=== PATIENT | female | born 1950 | race Hispanic/Latino ===

== ENCOUNTER → 2022-05-21 | Outpatient (CLI) | payer OTHER | END | disposition home or self-care (01) | LOC: RAH 11:01 | PROVIDERS: ATTEND Internal Medicine | DX: Z12.31 Encounter for screening mammogram for malignant neoplasm of breast (principal) | CPT/HCPCS: 77067 ==

== ENCOUNTER 2023-05-27 14:59 | Emergency (ER) | payer OTHER, MEDICARE ==
[~2023-05-27] VITALS: Ht 160 cm; Wt 88.0 kg
[2023-05-27] MEDS ORDERED: KETOROLAC 30MG VIAL (30MG/ML) IM ONE (17:30)
[2023-05-27 17:54] LABS: SARS-CoV-2, RNA, NAAT NEGATIVE SARS CoV-2 (NEGATIVE)
[2023-05-27 17:59] LABS: INFLUENZA TYPE A Negative For Type A (NEGATIVE); INFLUENZA TYPE B Negative For Type B (NEGATIVE)
[2023-05-27] MEDS ORDERED: IBUP-2070 PO (19:13)
[2023-05-27 19:20] VITALS: BP 142/64; PULSE 76; RESP 18; O2SAT 98
== END 2023-05-27 19:21 | disposition home or self-care (01) ==
LOC: EDH 14:59
DX: H57.11 Ocular pain, right eye (principal); E11.9 Type 2 diabetes mellitus without complications; E78.00 Pure hypercholesterolemia, unspecified; I10 Essential (primary) hypertension; Z20.822 Contact with and (suspected) exposure to COVID-19
CPT/HCPCS: 99283; 87635; 87804 ×2; 96372; C9803; J1885

== ENCOUNTER → 2024-07-31 | Outpatient (CLI) | payer OTHER, MEDICARE ==
[~2024-07-31] MED LIST: IBUP-2070 PO
[2024-07-31 12:22] LABS: BASOPHILS # (AUTO) 0.04 K/uL (0.00-0.20); BASOPHILS % (AUTO) 0.5 % (0.0-5.0); EOSINOPHILS # (AUTO) 0.13 K/uL (0.00-0.70); EOSINOPHILS % (AUTO) 1.6 % (0.0-8.0); HEMATOCRIT 37.5 % (36-48); IMMATURE GRANULOCYTE ABSOLUTE 0.03 K/uL (0-1); LYMPHOCYTES # (AUTO) 3.2 K/uL (1.0-4.8); MEAN CORPUSCULAR HEMOGLOBIN 29.9 pg (27.0-33.0); MEAN CORPUSCULAR HGB CONC 32.3 g/dL (32.0-36.0); MEAN CORPUSCULAR VOLUME 92.6 fL (79-99); MONOCYTES # (AUTO) 0.5 K/uL (0.1-1.0); NEUTROPHILS # (AUTO) 4.3 K/uL (1.8-7.7); NEUTROPHILS % (AUTO) 52.5 % (40.0-77.0); PLATELET COUNT (AUTO) 233 K/uL (130-400); RED BLOOD CELL COUNT(AUTO) 4.05 MIL/uL (4.00-5.50); WHITE BLOOD COUNT (AUTO) 8.2 K/uL (4.8-10.8)
[2024-07-31 12:54] LABS: ALBUMIN 3.6 g/dL (3.5-5.0); BILIRUBIN,TOTAL 0.3 mg/dL (0.2-1.0); CREATININE 1.1 mg/dL (0.5-1.0); POTASSIUM 5.4 mmol/L (3.5-5.1)
== END | disposition home or self-care (01) ==
LOC: LAB 10:33
PROVIDERS: ATTEND Internal Medicine Cardiovascular Disease
DX: I12.9 Hypertensive chronic kidney disease with stage 1 through stage 4 chronic kidney disease, or unspecified chronic kidney disease (principal); N18.9 Chronic kidney disease, unspecified; E78.5 Hyperlipidemia, unspecified
CPT/HCPCS: 36415; 80053; 80061; 85025

== ENCOUNTER → 2024-09-15 | Outpatient (CLI) | payer OTHER, MEDICARE ==
[~2024-09-15] VITALS: Ht 154.9 cm; Wt 86.6 kg
[~2024-09-15] MED LIST changes: +ATOR40TA71 PO; +EMPA25TA PO; +INSU3INS3 SQ; +LISI10TA24 PO; +MONT-39 PO; +SEMA2PEN SQ; +SERT-439 PO
[2024-09-15 11:12] VITALS: BP 164/78; PULSE 65; RESP 18; TEMP 97.2
[2024-09-15 11:14] LABS: BASOPHILS # (AUTO) 0.04 K/uL (0.00-0.20); BASOPHILS % (AUTO) 0.4 % (0.0-5.0); EOSINOPHILS # (AUTO) 0.09 K/uL (0.00-0.70); HEMATOCRIT 37.1 % (36-48); IMMATURE GRANULOCYTE ABSOLUTE 0.03 K/uL (0-1); LYMPHOCYTES # (AUTO) 2.6 K/uL (1.0-4.8); LYMPHOCYTES % (AUTO) 29.2 % (21.0-51.0); MEAN CORPUSCULAR HGB CONC 31.8 g/dL (32.0-36.0); MEAN CORPUSCULAR VOLUME 94.4 fL (79-99); MONOCYTES # (AUTO) 0.5 K/uL (0.1-1.0); MONOCYTES % (AUTO) 5.1 % (3.0-13.0); NEUTROPHILS # (AUTO) 5.8 K/uL (1.8-7.7); PLATELET COUNT (AUTO) 238 K/uL (130-400); RED BLOOD CELL COUNT(AUTO) 3.93 MIL/uL (4.00-5.50); RED CELL DISTRIBUTION WIDTH 12.8 % (11.0-15.5)
[2024-09-15 11:24] LABS: ALBUMIN 3.6 g/dL (3.5-5.0); CARBON DIOXIDE 31 mmol/L (21-32); CHLORIDE 107 mmol/L (101-111); CREATININE 0.9 mg/dL (0.5-1.0); GLOMERULAR FILTR. RATE CALC 68 mL/min (>90); GLUCOSE,RANDOM 128 mg/dL (70-105); POTASSIUM 4.7 mmol/L (3.5-5.1); SODIUM SERUM 139 mmol/L (136-145); UREA NITROGEN, BLOOD 26 mg/dL (7-18)
[2024-09-15 11:25] LABS: PROTHROMBIN TIME 10.6 SEC (9.6-11.6)
[2024-09-15 11:26] LABS: PARTIAL THROMBOPLASTIN TIME 27.6 SEC (26.3-35.5)
--- NOTE | 2024-09-15 11:30 | NUR ---
RE: IS INITIAL INCENTIVE SPIROMETER TEACHING DONE BY RT ALEJO DURING PREOP.
== END | disposition home or self-care (01) ==
LOC: DAH 10:15 → EDSTATUS 09-20 13:00
PROVIDERS: ATTEND Student in an Organized Health Care Education/Training Program
DX: Z01.812 Encounter for preprocedural laboratory examination (principal); M25.561 Pain in right knee; M17.11 Unilateral primary osteoarthritis, right knee; E11.22 Type 2 diabetes mellitus with diabetic chronic kidney disease; E11.51 Type 2 diabetes mellitus with diabetic peripheral angiopathy without gangrene; E11.36 Type 2 diabetes mellitus with diabetic cataract; N18.32 Chronic kidney disease, stage 3b; H26.9 Unspecified cataract
CPT/HCPCS: 36415; 80048; 82040; 84134; 85025; 85610; 85730; 86140; 87641

== ENCOUNTER 2024-12-13 05:34 | Observation (INO) | payer OTHER, MEDICAID ==
[2024-12-11 12:13] LABS: IMMATURE GRANULOCYTE ABSOLUTE 0.02 K/uL (0-1); NUCLEATED RED BLOOD CELLS 0.0 % (0.0-0.19); PLATELET COUNT (AUTO) 237 K/uL (130-400); RED BLOOD CELL COUNT(AUTO) 3.88 MIL/uL (4.00-5.50); RED CELL DISTRIBUTION WIDTH 12.8 % (11.0-15.5); WHITE BLOOD COUNT (AUTO) 9.0 K/uL (4.8-10.8)
[2024-12-11 12:15] LABS: APPEARANCE,URINE CLOUDY (CLEAR); GLUCOSE, URINE (UA) NEGATIVE (NEGATIVE); LEUKOCYTE ESTERASE ,URINE 500 Leu/uL (NEGATIVE); NITRATE,URINE 2+ (NEGATIVE); OCCULT BLOOD,URINE +- (TRACE) (NEGATIVE)
[2024-12-11 12:23] LABS: ADD UA MICROSCOPIC YES
[2024-12-11 12:26] LABS: INR 0.97 (0.85-1.15)
[2024-12-11 12:27] LABS: CREATININE 0.9 mg/dL (0.5-1.0); GLOMERULAR FILTR. RATE CALC 68 mL/min (>90); GLUCOSE,RANDOM 135 mg/dL (70-105); SODIUM SERUM 143 mmol/L (136-145); UREA NITROGEN, BLOOD 32 mg/dL (7-18)
[2024-12-11 12:29] LABS: SQUAMOUS EPITHELIAL CELL,UR RARE /HPF (0-2); WBC CLUMP FEW /HPF (0-1)
--- NOTE | 2024-12-11 13:00 | NUR ---
RE: IS INITIAL IS INITIAL DONE BY RT CYNDI DURING PREOP
[2024-12-11 13:57] VITALS: BP 168/72; PULSE 61; RESP 18; TEMP 97.5
--- NOTE | 2024-12-12 13:27 | NUR ---
RE: LABS REPORTED UA/URINE CX RESULTS TO DR FATIMA, NO NEW ORDERS RECEIVED. (PENDING SENSITIVITIES/SUSCEPTIBILITIES RESULTS)
[~2024-12-13] VITALS: Ht 152.4 cm; Wt 89.5 kg
[2024-12-13] VITALS (47 sets, daily range): BP systolic 99–156; BP diastolic 51–79; PULSE 55–98; RESP 12–20; TEMP 97.3–98.7; O2SAT 97–98
[~2024-12-13 05:34] MED LIST changes: -IBUP-2070 PO; +LATA2.5D7 OU; +MECL-302 PO
[2024-12-13] MEDS: 0.9%NACL 1000ML 1,000 ML IV ONE (06:12)
[2024-12-13] MEDS: FAMOTIDINE 20MG VIAL IV ONE (06:51)
[2024-12-13] MEDS ORDERED: LIDOCAINE PF 100MG/5ML (2%) SYRINGE 5ML ONE (06:53)
[2024-12-13] MEDS ORDERED: MIDAZOLAM HCL 1 MG/ML 2ML VIAL ONE (06:54)
--- NOTE | 2024-12-13 06:54 | EKG ---
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
[2024-12-13] MEDS: TRANEXAMIC ACID 1000MG/10ML ONE (07:50)
[2024-12-13] MEDS ORDERED: NEOSTIGMINE METHYLSULFATE 1MG/ML IV ONE (08:04)
[2024-12-13] MEDS ORDERED: GLYCOPYRROLATE 0.2 MG/ML 5 ML VIAL ONE (08:04)
[2024-12-13] MEDS ORDERED: HYDROcodone/APAP 5/325 1 TAB TABLET PO PRN (09:30)
[2024-12-13] MEDS ORDERED: CYCLOBENZAPRINE HCL 10 MG TABLET PO PRN (09:30)
[2024-12-13] MEDS ORDERED: CALCIUM CARB 500MG PO PRN (09:30)
[2024-12-13] MEDS ORDERED: PoTASSium chloRIDE 20MEQ ER 20 MEQ ERTAB PO PRN (09:30)
[2024-12-13] MEDS ORDERED: PoTASSium chl 10% ELIXIR 20MEQ 20 MEQ/15 ML UDCUP PO PRN (09:30)
[2024-12-13] MEDS: 0.9%NACL 1000ML 1,000 ML IV SCH (09:30)
[2024-12-13] MEDS ORDERED: FERROUS FUMARATE 324 MG TABLET PO PRN (09:30)
--- NOTE | 2024-12-13 11:24 | HMCIMG ---
EXAM: CR right Knee, 2 View. CLINICAL HISTORY: S/P RT TKA SURGERY COMPARISON: None provided. FINDINGS: Cemented right total knee arthroplasty is in near anatomic alignment with no periprosthetic fracture. Small knee joint effusion. Appropriate postsurgical changes about the right knee. IMPRESSION: 1. Postoperative right total knee arthroplasty in near anatomic alignment with small knee joint effusion. /[place]
--- NOTE | 2024-12-13 13:50 | DS ---
Discharge Summary Hospital Course Summary: The patient was admitted to the hospital postoperatively on 12/13/2024 after undergoing right total knee arthroplasty. They did well with routine postoperative pain control. They worked well with physical therapy. They developed some acute blood loss anemia but remained asymptomatic. The hospital course was otherwise uncomplicated. They were subsequently able to be discharged on postoperative day [] once discharge arrangements were made with home health position therapy. Verification Lead(s): None Procedure(s): Right total knee arthroplasty, 12/13/2024 Assessment/Plan: ASSESSMENT: Status post right total knee arthroplasty Acute blood loss anemia PLAN: See discharge instructions Home Medications: Reported Medications Empagliflozin (Jardiance) 25 Mg Tablet, 25 MG PO DAILY, TAB 12/11/24 Meclizine HCl (Meclizine HCl) 25 Mg Tablet, 25 MG PO DAILY PRN for DIZZINESS, TAB 12/11/24 Latanoprost (Latanoprost) 0.005 % Drops, 1 DROP OU HS, DROP 12/11/24 Insulin Glargine,Hum.rec.anlog (Lantus Solostar) 100 Unit/Ml (3 Ml) Insuln.pen, 25 UNIT SQ DAILY, SYRINGE 09/15/24 Semaglutide (Ozempic) 2 Mg/0.75 Ml (8 Mg/3 Ml) Pen.injctr, 2 MG SQ QWEEK Wednesday09/15/24 Montelukast Sodium (Montelukast Sodium) 10 Mg Tablet, 10 MG PO HS, TAB 09/15/24 Atorvastatin Calcium (Atorvastatin Calcium) 40 Mg Tablet, 40 MG PO HS, TAB 09/15/24 Sertraline HCl (Sertraline HCl) 50 Mg Tablet, 50 MG PO HS, TAB 09/15/24 Lisinopril (Lisinopril) 10 Mg Tablet, 10 MG PO DAILY, TAB 09/15/24 Discontinued Reported Medications Empagliflozin (Jardiance) 25 Mg Tablet, 25 MG PO DAILY, TAB 09/15/24 MARIS FATIMA MD Dec 13, 2024 13:50
--- NOTE | 2024-12-13 13:55 | OP ---
Operative Note: DATE OF PROCEDURE: 12/13/24 PREOPERATIVE DIAGNOSIS: Right knee osteoarthritis. POSTOPERATIVE DIAGNOSIS: Right knee osteoarthritis. PROCEDURE PERFORMED: Right knee total knee arthroplasty. SURGEON: Lina Woodson MD SUPERVISOR LOADING: Selvin Ann and Paulette Payton. ANESTHESIA: General with adductor canal block. ANESTHESIA: LAMAR Dodge. ESTIMATED BLOOD LOSS: 150cc. COMPLICATIONS: None. DRAINS: None. SPECIMENS REMOVED: resected bone. Not sent to pathology. IMPLANTS: [employer] II BCS size 4 Oxinium femur, size 3 tibial base plate, 32 mm patella, 9 mm polyethylene STATEMENT OF MEDICAL NECESSITY: The patient is a 74-year-old female who suffers from right knee osteoarthritis failing conservative management. After discussion of the risks, benefits, and alternatives with the patient, they voluntarily agreed to undergo the aforementioned procedure. DESCRIPTION OF PROCEDURE: Patient was properly identified in the preoperative holding area. Surgical site marking was verified and surgery consent reviewed. The patient was then taken to the operating room and placed in supine position on the OR table. After induction of general anesthesia, preoperative antibiotics were given, all bony prominences were well-padded, and a well padded tourniquet was applied but not inflated at this time. The right lower extremity was then prepped and draped in usual sterile fashion. Surgical time out was done verifying correct surgery, side, site, and location to be performed. We then began the procedure by exsanguinating the limb using an Esmarch and inflating the tourniquet to 350 mmHg. At this point, we made an anterior midline incision using a 10 blade, coming down sharply the level of the fascia. Skin flaps were elevated medially and laterally. We then obtained a clean 10 blade and performed a standard medial parapatellar arthrotomy. We excised the infrapatellar fat pad. We performed our soft tissue releases off of the tibia. We transected the ACL and removed the anterior portion of the medial & lateral meniscus. We then brought the knee into hyperflexion with the patella everted. We used our entry reamer to enter the femoral canal. We then placed our intramedullary cutting guide for our distal femoral cutting block. We then performed our distal femoral osteotomy ensuring appropriate rotation and removed the bony wafer. We then removed these pins and block and then used jig 2 to size the distal femur with the after mentioned size found. We then placed our 5-in-1 cutting block in 4 degrees of external rotation and took our 5 cuts ensuring to protect the patellar tendon and the collateral ligaments. We then removed the cutting block and our bony fragments using a curved osteotome. We then placed our PCL retractor subluxating the tibia anteriorly. Using an extra medullary tibial cutting guide, we hung the block for our proximal tibial cut taking 2 mm off the more diseased portion. Prior to pinning this block in place, we ensured appropriate varus/valgus alignment and posterior slope similar to the [place] slope of the patient's knee. We then performed our proximal tibial osteotomy and removed the bony wafer using Bovie electrocautery to release any remaining soft tissue attachments. We then used our tibial sizing paddle and checked once more for varus & valgus alignment and found this to be appropriate. At this point, we pinned our tibial paddle in place. We then removed the PCL retractor and subluxated the tibia posteriorly while we placed our femoral trial component. We then finished preparing the notch with the reamer and box chisel. The notch portion of the trial femoral component was then placed. A posterior stabilized polyethylene, size 9 trial was placed. The knee was then taken through range of motion and found to have stable full range of motion. We then placed a bump under the ankle and everted the patella to perform our freehand cut of the undersurface the patella. We then sized our patella and reamed to the lug holes for this. We placed our trial patellar component and begin to take the knee through range of motion. The patella had mild lateral tracking and a small lateral release was performed. At this point we began removing our trial components and punched the tibial keel prior to removing our tibial trial component. Final components were opened and cement was mixed on the back table while we injected local cocktail in the posterior capsule. We then thoroughly irrigated out the bone and dried the bony surfaces. We cemented our tibial component in place ensuring to remove excess cement and placed our trial polyethylene. We then cemented our femoral component in place once again taking time to ensure excess cement was removed leg was brought into full extension to help squeeze the excess cement from around the femoral component. We then brought the knee back in a flexion to remove this portion of the cement at this point we placed the ankle in a bump thoroughly irrigated off the patellar component and cemented our patellar component in standard fashion again removing excess cement. While we waited for the cement to cure, we thoroughly irrigated out the wound with normal saline. Once our cement had cured, we took the knee through a range of motion and found full and stable range of motion. We then elected to use the size 9 polyethylene and removed our trial polyethylene. We impacted our final polyethylene component in place in standard fashion and took the knee through a range of motion check once more. This was satisfactory so we began to repair the arthrotomy using #5 Ethibond and #1 Vicryl in interrupted [id number] fashion. Subcutaneous tissue was repaired using 2-0 Vicryl. Running subcuticular 3-0 Monocryl stitch with Dermabond placed over this for the skin. We then applied a foam barrier dressing and a pressure dressing consisting of 4 x 4's fluffs and an Fidencio wrap. The tourniquet was then deflated. Patient was awakened from anesthesia, and they were taken to the recovery room in stable condition. LINA WOODSON MD Dec 13, 2024 13:55
[2024-12-13] MEDS: HYDROcodone/APAP 5/325 1 TAB TABLET PO PRN (15:31)
--- NOTE | 2024-12-13 18:16 | NUR ---
DC PLAN VISITED WITH PATIENT. PATIENT LIVE WITH SPOUSE AND DAUGHTER. PATIENT HAS [facility] WALKER AND CANE. PROVIDER NOT SURE ON THE HOURS. CM ORDER WAS FOR HOME HEALTH AND AND EQUIPMENT. PER DAUGHTER THEY NOW WANT SNF. DAUGHTER CALLED OTHER DAUGHTER FOR WHICH FACILITY. SAID THEY WANT [facility] HAS FAMILY THERE. CM LET DR. FATIMA KNOW GOT OKAY FOR SNF. PACKET MADE AND SENT. Addendum: 12/13/24 at 1823 by PAPITO AGUILERA RN CM Amended: Links added.
[2024-12-13] MEDS: LATANOPROST 2.5 ML DROPS OU SCH (21:00)
[2024-12-14] VITALS: BP 107/55; PULSE 64; RESP 18; TEMP 97.4
[2024-12-14 04:00] VITALS: BP 106/45; PULSE 61; RESP 18; TEMP 98.6
[2024-12-14 04:06] LABS: NUCLEATED RED BLOOD CELLS 0.0 % (0.0-0.19); PLATELET COUNT (AUTO) 192.0 K/uL (130-400); RED BLOOD CELL COUNT(AUTO) 3.15 MIL/uL (4.00-5.50); RED CELL DISTRIBUTION WIDTH 13.1 % (11.0-15.5); WHITE BLOOD COUNT (AUTO) 10.6 K/uL (4.8-10.8)
[2024-12-14 04:28] LABS: CREATININE 1.3 mg/dL (0.5-1.0); GLOMERULAR FILTR. RATE CALC 43.0 mL/min (>90); GLUCOSE,RANDOM 94.0 mg/dL (70-105); SODIUM SERUM 141.0 mmol/L (136-145); UREA NITROGEN, BLOOD 32.0 mg/dL (7-18)
[2024-12-14 07:51] VITALS: BP 113/70; PULSE 69; RESP 20; TEMP 97.8
[2024-12-14 08:02] VITALS: O2SAT 98
[2024-12-14] MEDS: EMPAGLIFLOZIN 25MG TABLET PO SCH (09:21)
[2024-12-14] MEDS: ASPIRIN 325MG EC TAB PO SCH (09:22)
[2024-12-14] MEDS: LISINOPRIL 10 MG TABLET PO SCH (09:23)
[2024-12-14] MEDS: HYDROcodone/APAP 5/325 1 TAB TABLET PO PRN (09:52)
--- NOTE | 2024-12-14 11:50 | NUR ---
Ortho Coordinator: Teaching regarding DVT and pneumonia, pain expectations and pain management. Patient in bed. Family at bedside. Patient Upper Sorbian speaking only. Primary nurse, who is a hospital cork tile floor layer utilized to communicate. Incentive spirometer at bedside, patient return demonstrated proper use and verbalized frequency of use. Patient return demonstration of foot flexion/extension exercises, rationale provided. Pain currently controlled. Reviewed numeric pain scale. Patient instructed to perform self-pain assessment every few hours and report to nurse the numeric pain value and type of pain. Patient and family verbalized understanding. Patient intends to discharge to rehab. Encouraged patient to continue premedicating prior to physical therapy and periods of high activity. To continue with incentive spirometry and foot flexion/extension exercises. Patient and family verbalized understanding. No additional questions/concerns at this time.
[2024-12-14 12:00] VITALS: BP 88/45; PULSE 63; RESP 18; TEMP 98
[2024-12-14 16:00] VITALS: BP 95/53; PULSE 67; RESP 20; TEMP 98.3
--- NOTE | 2024-12-14 16:17 | NUR ---
JOSÉ MANUEL CAZARESSOR [facility] [phone] PER REP PATIENT ACCEPTED. LET NURSE AND KNOW. WILL GO VIA VAN. NIURKA VARELA. Addendum: 12/14/24 at 1620 by PAPITO AGUILERA RN CM Amended: Links added.
[2024-12-14] MEDS ORDERED: GABA100C PO (16:19)
[2024-12-14] MEDS ORDERED: ASPI-891 PO (16:19)
[2024-12-14] MEDS ORDERED: HYDR-4060 PO (16:19)
[2024-12-14] MEDS ORDERED: CYCL-309 PO (16:19)
[2024-12-14] MEDS ORDERED: DOCU-116 PO (16:19)
--- NOTE | 2024-12-14 17:45 | NUR ---
CALLED [facility] AND REPORT GIVEN. EXPLAINED CONTINUED AND INCISION CARE INSTRUCTIONS. CONFIRMED FACILITY VAN EVP. ALL QUESTIONS AND CONCERNS ANSWERED.
--- NOTE | 2024-12-14 18:37 | NUR ---
PATIENT DISCHARGED TO [facility]. HELPED GATHER PATIENTS BELONGINGS. IV REMOVED INTACT. CHART COPY GIVEN TO FACILITY TRANSPORTER. ALL QUESTIONS AND CONCERNS ANSWERED. CONFIRMED KNOWLEDGE OF FOLLOW UP OTHER APPOINTMENT WITH PATIENT. PATIENT LEFT VIA MARILYN WHEELCHAIR ALERT AND ORIENTED X 3.
[2024-12-20] MEDS ORDERED: (Semaglutide (Ozempic) 2 MG) SQ SCH (09:00)
== END 2024-12-14 18:30 ==
LOC: DAH 05:34 → DAHIP 05:35 → 4BH 14:30
PROVIDERS: ADMIT Student in an Organized Health Care Education/Training Program; ATTEND Student in an Organized Health Care Education/Training Program
DX: M17.11 Unilateral primary osteoarthritis, right knee (principal); D62 Acute posthemorrhagic anemia; I10 Essential (primary) hypertension; E07.9 Disorder of thyroid, unspecified; G89.29 Other chronic pain; Z79.899 Other long term (current) drug therapy
CPT/HCPCS: 82040; 80048 ×2; 85025; 85610; 85730; 87086 ×2; 84134; 86140; 81001; 36415 ×2; 87641; 96365; 96366; 96375; 64447; 93005; 27447; 87186; 82948 ×7; 73560; 97161; 97116 ×4; 97530 ×6; 96376; 85027; J1815 ×2; G0378 ×33; A4223 ×2; A4663; J3490 ×5; J3010; J1100; J7030; J2003; J2250; J2704; J2405; J1885 ×3; J2710; J2795 ×2; J0690 ×3; C1713 ×2; C1776 ×2; A4649 ×2; A6255; A5120; A4215; A4213; A4222; A4221; A4216

== ENCOUNTER → 2025-02-26 | Outpatient (CLI) | payer OTHER, MEDICAID ==
[~2025-02-26] MED LIST changes: +ASPI-891 PO; +CYCL-309 PO; +DOCU-116 PO; +GABA100C PO; +HYDR-4060 PO
== END | disposition home or self-care (01) ==
LOC: RAH 09:07
PROVIDERS: ATTEND Family Medicine
DX: Z12.31 Encounter for screening mammogram for malignant neoplasm of breast (principal)
CPT/HCPCS: 77067